=== PATIENT | male | born 1975 | race Caucasian/White ===

== ENCOUNTER 2017-11-24 21:40 | Emergency (ER) | payer SELFPAY, OTHER | END 2017-11-25 00:42 | disposition home or self-care (01) | LOC: FTE 21:40 | DX: S91.332A Puncture wound without foreign body, left foot, initial encounter (principal); W45.0XXA Nail entering through skin, initial encounter; Y92.9 Unspecified place or not applicable | CPT/HCPCS: 73630; 73630-LT; 99283-25 ==